=== PATIENT | male | born 1940 | race Two or more races ===

== ENCOUNTER 2019-09-14 18:27 | Emergency (ER) | payer MEDICARE, OTHER ==
[~2019-09-14] VITALS: Ht 172.7 cm; Wt 81.6 kg
[2019-09-14 18:35] VITALS: BP 198/112
--- NOTE | 2019-09-14 18:37 | NUR ---
ED Nurse Note: Patient brought in by ambulance from home after fall. Patient missed steps and fell down stairs to Left side of body in the basement. per spouse it is possible ETOH. patient has laceration with small amount of dry blood on the left side of the face and left ear. Bleeding controlled. patient aao x3 but responds slowly. calm and cooperative. pt is in gown and on manager monitoring. high bp noted from triage.
[2019-09-14] MEDS ORDERED: Lidocaine 1% 10mg/ml/EPI 0.01mg/ml 30ml INJ ONE (18:45)
[2019-09-14] MEDS ORDERED: Tetanus/Diptheria/Pertussis IM ONE (18:45)
[2019-09-14] MEDS ORDERED: HYDROcodone/Acetamin 5/325 tab ORAL ONE (18:45)
--- NOTE | 2019-09-14 18:56 | Emergency Room Report ---
History of Present Illness General Chief Complaint: Multiple Trauma/Fall Source: Patient Present Illness HPI 79-year-old male presents with mechanical fall down 4 steps, patient reports left-sided sharp facial pain where the laceration is present, no aggravating relieving factors severity is moderate, constant patient denies any LOC no nausea no vomiting patient presents for evaluation Allergies: Coded Allergies: No Known Allergies (Unverified , 09/14/19) COVID-19 Screening Contact w/high risk pt: No Recent Travel to affected area: No Experienced COVID-19 symptoms?: No Patient History Past Medical History: see triage record Reviewed Nursing Documentation: PMH: Agreed; PSxH: Agreed Nursing Documentation-PMH Past Medical History: No History, Except For Hx Hypertension: Yes Review of Systems All Other Systems: negative except mentioned in HPI Physical Exam Vital Signs Date Time Temp Pulse Resp B/P (MAP) Pulse Ox O2 Delivery O2 Flow Rate FiO2 09/14/19 18:34 98.4 73 16 206/116 (146) 98 Room Air Sp02 EP Interpretation: reviewed, normal General Appearance: well appearing, no apparent distress, alert Head: normocephalic, other - Laceration left face measuring greater than 8 cm Eyes: bilateral eye PERRL, bilateral eye EOMI ENT: uvula midline, moist mucus membranes Neck: supple, thyroid normal, supple/symm/no masses Respiratory: lungs clear, no respiratory distress, no retraction, no accessory muscle use Cardiovascular #1: normal peripheral pulses, regular rate, rhythm, no edema, no gallop, no murmur Gastrointestinal: non tender, soft, no guarding, no rebound Musculoskeletal: normal inspection Neurologic: alert, oriented x3 Psychiatric: mood/affect normal Skin: no rash, warm/dry Procedures Laceration/Wound Repair Laceration/Wound Repair : Consent: Emergent Wound Location: face Wound's Depth, Shape: linear, flap Wound Length (cm): 8 Wound Explored: clean Irrigated w/ Saline (ccs): 500 Betadine Prep?: Yes Anesthesia: 1% Lidocaine, Lidocaine w/ Epi Volume Anesthetic (ccs): 5 Wound Repaired With: sutures Suture Size/Type: 6:0 Number of Sutures: 21 Patient Tolerated: Well Complications: None Medical Decision Making Diagnostic Impression: Primary Impression: Fall Qualified Codes: W19.XXXA - Unspecified fall, initial encounter Additional Impressions: Scalp laceration Qualified Codes: S01.01XA - Laceration without foreign body of scalp, initial encounter Laceration of ear Qualified Codes: S01.312A - Laceration without foreign body of left ear, initial encounter ER Course 79-year-old male presents with mechanical fall with complicated laceration, differential diagnosis includes trauma contusion, intracranial hemorrhage. CT negative for any acute findings, wounds were sutured, patient was given a Tdap, plan for disposition home with return precautions and suture removal in the future CT/MRI/US Diagnostic Results CT/MRI/US Diagnostic Results : Impression Patient : EMILIA CRUZ Referring Physician: Chauncey Bragg MD ID Number: [id number] Service Date: 09/14/19 : 1940 Report Date: 09/14/19 Gender: M Accession No.: [id number] Location: [facility] Procedure: CT Head no Contrast EXAM: CT Head Without Intravenous Contrast CLINICAL HISTORY: FALL TECHNIQUE: Axial computed tomography images of the head/brain without intravenous contrast. CTDI is 68.7 mGy and DLP is 1440.6 mGy-cm. One or more of the following dose reduction techniques were used: automated exposure control, adjustment of the mA and/or kV according to patient size, use of iterative reconstruction technique. COMPARISON: No relevant prior studies available. FINDINGS: Brain: No intracranial hemorrhage, mass-effect, or edema. No acute cortical infarct. Bones/joints: Unremarkable. No acute fracture. Soft tissues: Left temporal scalp laceration. Sinuses: Unremarkable as visualized. Mastoid air cells: Unremarkable as visualized. No mastoid effusion. IMPRESSION: 1. No acute intracranial abnormality. 2. Left temporal scalp laceration. Dictated By: Josue Daniels M.D. Electronically Signed By: Josue Daniels M.D. Signed Date/Time 09/14/191931 CC: Chauncey Bragg MD Procedure: CT Facial Bones no Contrast EXAM: CT Maxillofacial Without Intravenous Contrast CLINICAL HISTORY: FALL TECHNIQUE: Axial computed tomography images of the face without intravenous contrast. CTDI is 15.3 mGy and DLP is 368.4 mGy-cm. One or more of the following dose reduction techniques were used: automated exposure control, adjustment of the mA and/or kV according to patient size, use of iterative reconstruction technique. COMPARISON: No relevant prior studies available. FINDINGS: Bones/joints: No facial fracture. Soft tissues: Left temporal facial laceration. Sinuses: Unremarkable as visualized. Mastoid air cells: Unremarkable as visualized. No mastoid effusion. Orbits: Unremarkable as visualized. IMPRESSION: 1. No facial fracture. 2. Left temporal soft tissue laceration. Dictated By: Josue Daniels M.D. Electronically Signed By: Josue Daniels M.D. Signed Date/Time 09/14/191942 CC: Chauncey Bragg MD Procedure: CT C Spine no Contrast EXAM: CT Cervical Spine Without Intravenous Contrast CLINICAL HISTORY: FALL TECHNIQUE: Axial computed tomography images of the cervical spine without intravenous contrast. CTDI is 9.2 mGy and DLP is 219 mGy-cm. One or more of the following dose reduction techniques were used: automated exposure control, adjustment of the mA and/or kV according to patient size, use of iterative reconstruction technique. COMPARISON: No relevant prior studies available. FINDINGS: Vertebrae: No fracture or malalignment. Moderate cervical degenerative spondylosis. Soft tissues: Unremarkable. IMPRESSION: No fracture or malalignment. Dictated By: Josue Daniels M.D. Electronically Signed By: Josue Daniels M.D. Signed Date/Time 09/14/191947 CC: Chauncey Bragg MD Last Vital Signs Date Time Temp Pulse Resp B/P (MAP) Pulse Ox O2 Delivery O2 Flow Rate FiO2 09/14/19 18:34 98.4 73 16 206/116 (146) 98 Room Air Disposition: HOME, SELF-CARE Condition: Stable Referrals: [facility]. [facility] Patient Instructions: Facial Laceration, [id number], Head Injury, Adult, Easy -to-Read Additional Instructions: The patient was provided with discharge instructions, notified to follow-up with a primary care doctor and or specialist in the next 24-48 hours, and to return to the ED if they have worsening of their symptoms. Please note that this report is being documented using [employer] technology. This can lead to erroneous entry secondary to incorrect interpretation by the dictating instrument. PLEASE HAVE SUTURES REMOVED 09/22/2019 Chauncey Bragg MD September 14, 2019 18:56
--- NOTE | 2019-09-14 19:30 | NUR ---
ED Nurse Note: received patient from khushboo canales rn. patient resting in bed with no acute distress. ao3; slurred words. patient presents with lac to left anterior face. ermd at bedside for lac repair. attached to monitor; vss. all safety measure met.
--- NOTE | 2019-09-14 19:33 | Diagnostic Imaging Report ---
EXAM: CT Head Without Intravenous Contrast CLINICAL HISTORY: FALL TECHNIQUE: Axial computed tomography images of the head/brain without intravenous contrast. CTDI is 68.7 mGy and DLP is 1440.6 mGy-cm. One or more of the following dose reduction techniques were used: automated exposure control, adjustment of the mA and/or kV according to patient size, use of iterative reconstruction technique. COMPARISON: No relevant prior studies available. FINDINGS: Brain: No intracranial hemorrhage, mass-effect, or edema. No acute cortical infarct. Bones/joints: Unremarkable. No acute fracture. Soft tissues: Left temporal scalp laceration. Sinuses: Unremarkable as visualized. Mastoid air cells: Unremarkable as visualized. No mastoid effusion. IMPRESSION: 1. No acute intracranial abnormality. 2. Left temporal scalp laceration.
--- NOTE | 2019-09-14 19:43 | Diagnostic Imaging Report ---
EXAM: CT Maxillofacial Without Intravenous Contrast CLINICAL HISTORY: FALL TECHNIQUE: Axial computed tomography images of the face without intravenous contrast. CTDI is 15.3 mGy and DLP is 368.4 mGy-cm. One or more of the following dose reduction techniques were used: automated exposure control, adjustment of the mA and/or kV according to patient size, use of iterative reconstruction technique. COMPARISON: No relevant prior studies available. FINDINGS: Bones/joints: No facial fracture. Soft tissues: Left temporal facial laceration. Sinuses: Unremarkable as visualized. Mastoid air cells: Unremarkable as visualized. No mastoid effusion. Orbits: Unremarkable as visualized. IMPRESSION: 1. No facial fracture. 2. Left temporal soft tissue laceration.
--- NOTE | 2019-09-14 19:49 | Diagnostic Imaging Report ---
EXAM: CT Cervical Spine Without Intravenous Contrast CLINICAL HISTORY: FALL TECHNIQUE: Axial computed tomography images of the cervical spine without intravenous contrast. CTDI is 9.2 mGy and DLP is 219 mGy-cm. One or more of the following dose reduction techniques were used: automated exposure control, adjustment of the mA and/or kV according to patient size, use of iterative reconstruction technique. COMPARISON: No relevant prior studies available. FINDINGS: Vertebrae: No fracture or malalignment. Moderate cervical degenerative spondylosis. Soft tissues: Unremarkable. IMPRESSION: No fracture or malalignment.
[2019-09-14 20:00] VITALS: BP 200/114
--- NOTE | 2019-09-14 21:00 | NUR ---
ED Nurse Note: laceration repair completed by ermd. cleaned suture site; pressure dressing applied. will continue to monitor.
[2019-09-14 21:30] VITALS: BP 149/92
--- NOTE | 2019-09-14 21:30 | NUR ---
ED Nurse Note: patient in stable condition. ermd cleared patient for d/c. 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 vss. patient ao4. will continue to monitor until final d/c to family.
[2019-09-14 22:25] VITALS: BP_SYST 142; BP_SYST 149; BP_DIAS 89; BP_DIAS 92
--- NOTE | 2019-09-14 22:25 | NUR ---
ER DISCHARGE NOTE: Patient is cleared to be discharged per ERMD, pt is aox4, on room air, with stable vital signs. pt family in waiting room to take pt home. pt was given dc and prescription instructions, pt was able to verbalize understanding, pt id band and iv site removed without complications. pt is able to ambulate with steady gait. pt took all belongings.
== END 2019-09-14 22:25 | disposition home or self-care (01) ==
LOC: EDBD 18:27 → EMR 19:31
DX: S01.01XA Laceration without foreign body of scalp, initial encounter (principal); S01.312A Laceration without foreign body of left ear, initial encounter; I10 Essential (primary) hypertension; W10.9XXA Fall (on) (from) unspecified stairs and steps, initial encounter; Y93.9 Activity, unspecified; Y92.9 Unspecified place or not applicable
CPT/HCPCS: 70450; 70486; 72125; 90471; 90715; 99284